=== PATIENT | female | born 1990 | race Caucasian/White ===

== ENCOUNTER 2019-02-13 21:33 | Emergency (ER) | payer OTHER ==
[2019-02-13] MEDS ORDERED: methylPREDNISolone SOD SUCC 125 MG/2 ML VIAL IVP ONE (21:52)
[2019-02-13] MEDS ORDERED: FAMOTIDINE 20 MG/2 ML SDV IVP ONE (21:52)
[2019-02-13] MEDS ORDERED: NS 1,000 ML IV ONE (21:53)
--- NOTE | 2019-02-13 21:53 | EDPHY ---
H & P Stated Complaint: rash, hives waist up, difficulty swallowing, unknown allergan Time Seen by Provider: 02/13/19 21:52 - Personal History LMP (Females 10-55): IUD In Place Current Tetanus Diphtheria and Acellular Pertussis (TDAP): Yes - Medical/Surgical History Hx Asthma: No Hx Chronic Respiratory Disease: No Hx Diabetes: No Hx Cardiac Disease: No Hx Renal Disease: No Hx Cirrhosis: No Hx Alcoholism: No Hx HIV/AIDS: No Hx Splenectomy or Spleen Trauma: No Other PMH: depression - Social History Smoking Status: Never smoked Constitutional: Initial Vital Signs Temperature (C) 37 C 02/13/19 21:35 Heart Rate 76 02/13/19 21:35 Respiratory Rate 16 02/13/19 21:35 Blood Pressure 139/73 H 02/13/19 21:35 O2 Sat (%) 98 02/13/19 21:35 O2 Delivery Mode Room Air Allergies/Adverse Reactions: No Known Allergies Allergy (Unverified 02/13/19 21:38) Home Medications: Medication Instructions Recorded Effexor Xr 02/13/19 Famotidine [Pepcid 20 MG (OTC)] 20 mg PO DAILY #10 tab 02/13/19 methylPREDNISolone [Medrol Dose 1 each PO AD #1 ea 02/13/19 Wayne] Medical Decision Making ED Course/Re-evaluation: CHIEF COMPLAINT: Hives HISTORY OF PRESENT ILLNESS: The patient is a 28 y/o female complaining of hives and an odd sensation of her throat onset today. The patient developed the hives on her trunk and upper extremities. She is unsure what caused the hives. Due to her symptoms she took 125mg PO Benadryl, without relief of her symptoms. As her symptoms did not improve she decided to present to the emergency department. No fever, headache, body aches, lightheadedness, chest pain, heart palpitations, shortness of breath , cough, abdominal pain, urinary or bowel complaints, numbness, paresthesias. REVIEW OF SYSTEMS: A comprehensive 10 system review of systems is otherwise negative aside from elements mentioned in the history of present illness and medical decision making. PHYSICAL EXAM: HR, BP, O2 Sat, RR. Temp noted General Appearance: Alert, well hydrated, appropriate, and non-toxic appearing. Head: Atraumatic without scalp tenderness or obvious injury Eyes: Pupils equal, round, reactive to light and accommodation, EOMI, no trauma , no injection. Ears: Clear bilaterally, no perforation, normal landmarks Nose: Atraumatic, no rhinorrhea, clear. Throat: There is no erythema or exudates, no lesions, normal tonsils, mucus membranes moist. Neck: Supple, 2+ carotid upstroke, nontender, no lymphadenopathy. Respiratory: No retractions, no distress, no wheezes, and no accessory muscle use. Lungs are clear to auscultation bilaterally. Cardiovascular: Regular rate and rhythm, no murmurs, rubs, or gallops. Bilateral carotid, radial, dorsalis pedis, and posterior tibial pulses intact. Good capillary refill all extremities. Gastrointestinal: Abdomen is soft, nontender, non-distended, no masses, no rebound, no guarding, no peritoneal signs. Musculoskeletal: Normal active ROM of all extremities, atraumatic. Neurological: Alert, appropriate, and interactive. The patient has normal DTRs and non-focal cranial nerves, motor, sensory, and cerebellar exam. Skin: Hives on trunk and upper extremities. Good turgor, no nodules on palpation. Past medical history: Depression Past surgical history: Denies Family history: Denies Social history: Lives in [place], single, employed DIAGNOSTICS/PROCEDURES/CRITICAL CARE TIME: Not indicated. DIFFERENTIAL DIAGNOSIS: The differential diagnosis included but was not limited to angioedema, anaphylaxis, anaphylactoid reaction, urticarial reaction, and other infectious causes for skin rash. MEDICAL DECISION MAKING: The patient is a 28 y/o female complaining of hives on her upper extremities and trunk today. She is unsure what caused the hives. She took 125mg PO Benadryl , without relief of her symptoms. On exam she has hives on her trunk and upper extremities. She does not have any oropharyngeal edema and is no having anaphylaxis. 20mg IV Pepcid, 125mg IV Solu-Medrol, and 1L IV NS administered. We will continue to observe this patient. 2229: Reassessed patient, she is feeling good and requesting to go home. I have advised her to follow up with an map maker and take Pepcid and a Medrol dose pack as prescribed. Return precautions provided; patient is comfortable with this plan. - Data Points Medications Given: Discontinued Medications Famotidine (Pepcid) 20 mg IVP EDNOW ONE Stop: 02/13/19 21:53 Last Admin: 02/13/19 22:03 Dose: 20 mg Sodium Chloride (Ns) 1,000 mls @ 0 mls/hr IV ONCE ONE; Wide Open PRN Reason: Protocol Stop: 02/13/19 21:54 Last Admin: 02/13/19 22:03 Dose: 1,000 mls Methylprednisolone Sodium Succinate (Solu-Medrol) 125 mg IVP EDNOW ONE Stop: 02/13/19 21:53 Last Admin: 02/13/19 22:03 Dose: 125 mg Departure - Departure Disposition: Home, Routine, Self-Care Clinical Impression: Hives Allergic reaction Qualifiers: Encounter type: initial encounter Qualified Code(s): T78.40XA - Allergy, unspecified, initial encounter Instructions: Urticaria (ED), Allergies (ED) Additional Instructions: 1. Take a Medrol dose pack and Pepcid as prescribed. 2. Follow-up with your primary doctor within 72 hours. 3. Use [id number] Benadryl as directed for itching. Take 25-50mg every 6 hours. 4. Return to the Emergency Department for shortness of breath, difficulty swallowing, difficulty breathing, worsening of rash, fever or other worsening of condition. 5. When symptoms have completely subsided, follow up with an map maker soon as possible to determine the cause of the allergic reaction. Referrals: Clif Sun MD [Medical Doctor] - As per Instructions Prescriptions: Famotidine [Pepcid 20 MG (OTC)] 20 mg PO DAILY #10 tab methylPREDNISolone [Medrol Dose Wayne] 1 each PO AD #1 ea Report Scribed for: Terrance Hua Report Scribed by: Sarahy Mascorro Date of Report: 02/13/19 Time of Report: 22:27
[2019-02-13 22:42] VITALS: BP 103/49
== END 2019-02-13 22:43 | disposition home or self-care (01) ==
DX: T78.40XA Allergy, unspecified, initial encounter (principal); L50.9 Urticaria, unspecified; E86.9 Volume depletion, unspecified
CPT/HCPCS: 96374; J2930